=== PATIENT | female | born 1935 | race Caucasian/White ===

== ENCOUNTER → 2018-06-07 | Outpatient (CLI) | payer OTHER ==
[~2018-06-07] MED LIST: LIDOCAINE 1% MDV 20ML VIAL As Ordered ONE
--- NOTE | 2018-06-07 14:51 | REP ---
POSTBIOPSY MAMMOGRAM RIGHT BREAST: Postbiopsy mammogram right breast performed in the ML, CC, and axillary CC projections. A metallic clip is seen at the nodule in the posterior upper outer quadrant of the right breast. which was biopsied with ultrasound guidance. Electronically Signed by Pancho Starkey MD 06/07/2018 04:39 P
--- NOTE | 2018-06-08 14:32 | REP ---
ULTRASOUND GUIDED BREAST BIOPSY OF THE RIGHT BREAST: The procedure was performed under the direct supervision of Dr. Starkey. The risks and benefits of the procedure were explained to the patient and informed consent was obtained. The right breast mass was localized using ultrasound guidance. The skin was prepped and draped in a sterile fashion. 1% lidocaine was given as a local anesthetic. Using ultrasound guidance a 13-gauge suction-assisted Mammotome needle was inserted and six core biopsies were obtained. A marker clip was placed at the biopsy site. The patient tolerated the procedure well and there were no immediate complications. After the appropriate amount of monitored convalescence, the patient was discharged from the department. Reviewed by ERIC Doss 06/09/2018 12:34 P Edited and Electronically Signed by Pancho Starkey MD 06/09/2018 04:11 P
--- NOTE | 2018-06-08 15:27 | REP ---
ULTRASOUND RIGHT BREAST: Real-time sonographic evaluation of the right breast performed prior to a scheduled ultrasound guided biopsy of a mass in the upper outer quadrant. This mass is palpable. At that location there is an irregular hypoechoic mass which measures 1.7 x 1.4 x 1.7 cm. There is internal vascularity with duplex Doppler evaluation. Ultrasound guided biopsy of the mass is subsequently performed. Electronically Signed by Pancho Starkey MD 06/08/2018 04:02 P
== END ==
LOC: M RADPRO 12:41
PROVIDERS: ATTEND Internal Medicine
DX: C50.911 Malignant neoplasm of unspecified site of right female breast (principal)

== ENCOUNTER → 2018-09-22 | Outpatient (CLI) | payer OTHER ==
[~2018-09-22] MED LIST changes: +ALPR0.5T3 PO; +AMLO5TAB6 PO; +ATEN100T PO; +BUSP15TA47 PO; +D3 U5000 PO; +FOLI800C PO; +LETR2.5T2 PO; -LIDOCAINE 1% MDV 20ML VIAL As Ordered ONE; +LOSA50TA88 PO; +PRAV40TA2 PO
--- NOTE | 2018-09-25 06:51 | ECHO ---
DATE OF SERVICE: 09/22/2018 DATE OF : 1935 AGE: 83 REFERRING PHYSICIAN: Myra Perez MD PATIENT LOCATION: Outpatient. REASON FOR THE ECHOCARDIOGRAM: Drug monitoring. 2D MEASUREMENTS: IVS 0.8 cm LV 4.1 cm LVPW 0.9 cm LA 2.8 cm Aorta 3.2 cm RV 3.0 cm IVC 1.9 cm DOPPLER MEASUREMENTS: Peak velocity across the aortic valve 1.9 m/s Peak velocity across the LVOT 1.1 m/s Mitral E 0.73 Mitral A 0.67 with a ratio of 1.1 Maximum tricuspid valve velocity 2.5 m/s 2D COMMENTS: 1. Normal left ventricular size, wall thickness, and normal global left ventricular systolic function. The estimated ventricular systolic ejection fraction is 60-65%. 2. Subjectively, the left atrium appeared to be mildly enlarged. Normal right atrium and right ventricle. 3. The atrial septum appeared to be normal without evidence of defect or shunt. 4. Normal aortic root. 5. No pericardial effusion seen. 6. Mildly calcified aortic valve with minimally restricted leaflet motion. Mildly calcified mitral annulus with normal anterior mitral valve leaflet motion. Normal tricuspid valve and pulmonic valve. The proximal pulmonary artery branches were not well visualized. 7. The inferior vena cava was normal in size, central venous pressure is most likely normal. Doppler, it detects mild aortic regurgitation, mild mitral regurgitation, and mild to moderate tricuspid regurgitation. The calculated pulmonary artery systolic pressure varies between 30-40 mmHg. Abnormal relaxation pattern was noted across the mitral valve annulus consistent with features of grade 2 left ventricular diastolic dysfunction, left ventricular end-diastolic pressure might be elevated. IMPRESSION: 1. Normal global left ventricular systolic function. There are some features of left ventricular diastolic dysfunction, grade 2. 2. Aortic valve sclerosis with mild aortic regurgitation and trivial aortic stenosis. 3. Mitral annulus calcification with mild mitral regurgitation. Subjectively, the left atrium appeared to be mildly enlarged. 4. Mild to moderate tricuspid regurgitation with mild pulmonary hypertension.
== END ==
LOC: M CARPUL 09:04
PROVIDERS: ATTEND Internal Medicine Medical Oncology
DX: C50.919 Malignant neoplasm of unspecified site of unspecified female breast (principal); Z13.6 Encounter for screening for cardiovascular disorders